=== PATIENT | female | born 2000 | race Two or more races ===

== ENCOUNTER 2024-08-29 20:58 | Emergency (ER) | payer BC, SELFPAY ==
[2024-08-29 21:33] VITALS: BP 130/80; PULSE 85; RESP 18; TEMP 36.9; O2SAT 100
[2024-08-29] MEDS: AMOXICILLIN/POT CLAV 875 TABLET 1 TAB PO (21:50)
[2024-08-29] MEDS: ACETAMINOPHEN 500 MG TABLET 1000 MG PO (21:50)
--- NOTE | 2024-08-30 02:04 | PD.EDDENTL ---
ED Dental RME/HPI General Chief complaint: Dental/Oral/Throat Stated complaint: Toothache-feels its cracked-27wks PG Time Seen by Provider: 08/29/24 21:45 Arrival date/time: 08/29/24 20:58 24F with no significant PMH presents to ED with dental pain for a few days. Patient is also . Limitations: no limitations Related Data Home Medications ?Medication ?Instructions ?Recorded ?Confirmed ampicillin 500 mg capsule 500 mg PO BID 09/04/22 09/04/22 prenat.vits,elfego,ohj-aeir-lnexk 1 tab PO QDAY 09/04/22 09/04/22 Previous Rx's ?Medication ?Instructions ?Recorded amoxicillin 875 mg-potassium 1 tab PO BID 7 days #14 tabs 08/29/24 clavulanate 125 mg tablet Allergies Allergy/AdvReac Type Severity Reaction Status Date / Time No Known Allergies Allergy Verified 09/04/22 22:16 Review of Systems Review of Systems Systems Reviewed: All systems reviewed, normal except as documented Constitutional Constitutional: Reports system reviewed and no additional complaints, except as documented, Denies fever(s) and Denies headache(s) ENT Ears, Nose, Mouth, and Throat: Reports as per HPI, Reports dental pain, Denies disequilibrium and Denies headache(s) Cardiovascular Cardiovascular: Reports system reviewed and no additional complaints, except as documented, Denies chest pain and Denies dyspnea Respiratory Respiratory: Reports system reviewed and no additional complaints, except as documented, Denies cough and Denies dyspnea Gastrointestinal Gastrointestinal: Reports system reviewed and no additional complaints, except as documented, Denies abdominal pain, Denies nausea and Denies vomiting Neurologic Neurologic: Reports system reviewed and no additional complaints, except as documented, Denies confusion, Denies disequilibrium and Denies headache(s) Psychiatric Psychiatric: Denies confusion Past Medical History Past Medical History NEUROLOGIC: Negative Neurological Disorders CARDIAC: Negative Cardiac Disorders or Congestive Heart Failure RESPIRATORY: Negative Chronic Obstructive Pulmonary Disease (COPD) or Asthma GASTROINTESTINAL: Negative Gastrointestinal Disorders or Hepatitis GENITOURINARY: Negative Genitourinary Disorders or Renal Disease REPRODUCTIVE: Negative Endometriosis, Genital Herpes, Gonorrhea, Pelvic Inflammatory Disease, Previous Pregnancies, Syphilis or Uterine Prolapse MUSCULOSKELETAL: Negative Musculoskeletal Disorders ENDOCRINE: Negative Endocrine Disorders, Diabetes Mellitus Type 1 or Diabetes Mellitus Type 2 HEMATOLOGIC: Negative Blood Disorders or Sickle Cell Disease OTHER HISTORY: Negative Hospitalization, Autoimmune Disease, Down Syndrome, Developmental Delay, Shingles, Falls, Blood Transfusions, Blood Transfusion Reaction, Anesthesia Reactions, Organ Transplant, Chemotherapy, Radiation Therapy, Hyperbaric Therapy, MRSA, VRSA, Vancomycin-Resistant Enterococci, Human Immunodeficiency Virus (HIV), Chicken Pox, Measles, Mumps, Rubella (Chinese Measles), Pertussis, Clostridium Difficile or Cancer Family History FAMILY HISTORY: Positive Family Cardiac Disorders (FATHER, HTN); Negative Family Psychiatric Problems, Family Respiratory Disorders, Family Gastrointestinal Problems, Family Cancer, Family Surgery or Family Anesthesia Reaction Surgical History SURGICAL: Negative Section or Organ Transplant Social History SMOKING STATUS: Never smoker ED Exam General Limitations: Present no limitations General appearance: Present alert and in no apparent distress Head Head exam: Present atraumatic Eye Eye exam: Present normal appearance, PERRL and EOMI ENT ENT exam: Present mucous membranes moist Expanded ENT Exam Teeth exam: Present gingival swelling Neck Neck exam: Present normal inspection, full ROM and trachea midline Chest Chest inspection: Present normal inspection and symmetric chest wall rise Respiratory Respiratory exam: Present normal lung sounds bilaterally Cardiovascular Cardiovascular exam: Present regular rate, normal rhythm and normal heart sounds Abdominal Exam Abdominal exam: Present soft and normal bowel sounds Extremities Exam Extremities exam: Present normal inspection and full ROM Back Exam Back exam: Present normal inspection and full ROM Neurological Exam Neurological exam: Present alert, oriented X3 and CN II-XII intact Psychiatric Psychiatric exam: Present normal affect and normal mood Skin Skin exam: Present warm, dry, intact and normal color Course Quality Measures none Orders Category Date Time Status Acetaminophen Tab [Tylenol ES Tab] Med 08/29/24 21:46 Discontinued 1,000 mg PO X1 ONE Amoxicillin/Pot Clav 875 [Augmentin 875] Med 08/29/24 21:46 Discontinued 1 tab PO X1 ONE Vital Signs Vital signs: Vital Signs Temperature 98.4 F 08/29/24 21:33 Pulse Rate 85 08/29/24 21:33 Respiratory Rate 18 08/29/24 21:33 Blood Pressure 130/80 08/29/24 21:33 Pulse Oximetry (%) 100 08/29/24 21:33 Oxygen Delivery Method Room Air 08/29/24 21:33 O2 at 100% on RA and WNLs Dental / Oral MDM Narrative MDM Narrative:: 24F with no significant PMH presents to ED with dental pain for a few days. Patient is also . Physical exam reveals gingival swelling around L upper tooth with filling in it. Patient is afebrile, calm, and alert. Meds and mitochondrial disorders counselor given. Patient data External records reviewed:: [facility] previous records Clinical information provided by:: patient Social determinants that could affect healthcare access:: none Patient has the following chronic illnesses:: none How is presenting disease/condition affected by chronic disease/condition?: no chronic disease Evaluation data The following diagnostics were reviewed and interpreted by me:: other (specify) (none) Lab and/or radiology exams considered but not ordered:: not ordered Interpretation Summary: n/a Medications / Prescriptions Medications or Prescriptions considered but not ordered:: ordered Medication administrations:: Medication Administration History Discontinued Medications Acetaminophen (Acetaminophen 500 Mg Tablet) 1,000 mg PO X1 ONE Stop: 08/29/24 21:47 Last Admin: 08/29/24 21:50 Dose: 1,000 mg Documented By: ALYSON Amoxicillin/Clavulanate Potassium (Amoxicillin/Pot Clav 875 Tablet) 1 tab PO X1 ONE Stop: 08/29/24 21:47 Last Admin: 08/29/24 21:50 Dose: 1 tab Documented By: ALYSON above Consultations Consultation(s) initiated? (list below): No Diagnosis Dental Differential Diagnosis: gingival abscess, dental caries, toothache, dental abscess, fracture of tooth, aphthous ulcer and other (dental infection) Most likely diagnosis given after review of the tests above:: dental infection Admission Indicated Admission indicated?: not indicated Admission Request Was there a request for admission?: No Disposition Plan Disposition Plan: Discharge Discharge Attestation Discharge Attestation: The patient and all family members were given an opportunity to ask questions and understood the discharge instructions. Discharge instructions specifically effects, indications for sooner follow up or return to the emergency department, and the expected course of current diagnosis. Patient condition: Stable Discharge Plan Plan Patient Disposition: HOME (Self Care) Disposition Comment: Stable Prescriptions/Referrals Prescriptions/Med Rec: New amoxicillin-pot clavulanate 875-125 mg tablet 1 tab PO BID 7 Days Qty: 14 0RF No Action ampicillin 500 mg capsule 500 mg PO BID Patient Comments: TAKE 1 CAPSULE BY MOUTH TWICE DAILY FOR 7 DAYS Vitamin Tablet 1 tab PO QDAY Problem List Clinical Impression: Dental infection Patient/Caregiver Discharge Instructions Additional Instructions: Please follow-up with PCP within 24-48 hours and return immediately if symptoms worsen. See dentist soon. Print Language: Singaporean Stand Alone Forms: Patient Portal Info Letter PA/SUPERVISOR SHIPFITTER[employer] Supervising Physician PA/SUPERVISOR SHIPFITTER[employer] Supervising Physician: Dr. Lay
== END 2024-08-30 02:10 | disposition home or self-care (01) ==
LOC: SERX 21:57
PROVIDERS: Emergency Provider Emergency Medicine
DX: O99.612 Diseases of the digestive system complicating pregnancy, second trimester (principal); K04.7 Periapical abscess without sinus; Z3A.27 27 weeks gestation of pregnancy
CPT/HCPCS: 99282; A9270

== ENCOUNTER 2024-11-15 15:17 | Observation (INO) | payer BC, SELFPAY ==
[2024-11-15 15:26] VITALS: BP 120/65; PULSE 88
[2024-11-15 15:46] VITALS: BMI 36.0
[2024-11-15 16:11] VITALS: BP 120/65; PULSE 88; RESP 20; RESP 97; TEMP 36.7
== END 2024-11-15 16:30 | disposition home or self-care (01) ==
PROVIDERS: Admitting Provider Advanced Practice Midwife; Visit Provider Advanced Practice Midwife
DX: O46.93 Antepartum hemorrhage, unspecified, third trimester (principal); Z3A.38 38 weeks gestation of pregnancy
CPT/HCPCS: 59025; 59899

== ENCOUNTER 2024-11-19 02:12 | Inpatient (IN) | payer BC, SELFPAY ==
[2024-11-19] VITALS (59 sets, daily range): BP systolic 0–166; BP diastolic 0–100; PULSE 75–126; RESP 17–98; TEMP 36.8–37; O2SAT 93–100; BMI 36.3
[2024-11-19] MEDS: RINGERS LACTATED 1000 ML 1,000 ML 125 ML IV (03:04)
[2024-11-19] MEDS: Ampicillin Inj 2,000 MG in SODIUM CHLORIDE 0.9% (P) 100 ML 200 MG IV (03:31)
--- NOTE | 2024-11-19 03:35 | PD.LDHP ---
Documentation for date of: 11/19/24 OB Labor/Induct. HPI History of Present Illness Chief complaint: contractions, lost mucous plug : 2 Para: 1 Term pregnancies: 1 pregnancies: 0 Living children: 1 History of Abortions: Spontaneous and Elective: 0 History of Vaginal deliveries: 1 History of sections: No History of : No LEROY: 11/24/24 Gestational Age (weeks): 39 Gestational Age (days): 2 History of present illness: Patient presents with regular/painful ctx that started around midnight and loss of mucous plug. No LOF, no vaginal bleeding. Feels normal movement. History of Present Dating criteria: based on 1st trimester US only Adequate Care: Yes Narrative: -Obesity in , starting BMI 32. HgbA1c 5.2. -THC use in early with UDS positive for cannabinoids -Rubella non-immune -UTI treated in early Labs Labs: Positive: Group Beta Strep (per patient) and Negative: RPR, Hepatitis B, Rubella Titre, HIV, Chlamydia and Gonorrhea Review of Systems Review of Systems Narrative Review of Systems: Review of Systems Systems Reviewed: All systems reviewed, normal except as documented Constitutional Constitutional: Denies body ache(s), Denies chills, Denies fever(s) and Denies headache(s) ENT Ears, Nose, Mouth, and Throat: Denies headache(s) and Denies vertigo Cardiovascular Cardiovascular: Denies chest pain, Denies palpitations, Denies dyspnea and Denies syncope Respiratory Respiratory: Denies cough, Denies dyspnea Gastrointestinal Gastrointestinal: Denies nausea and Denies vomiting Neurologic Neurologic: Denies convulsions, Denies headache(s), Denies other visual disturbances, Denies syncope and Denies vertigo Past Medical History Family History OTHER FAMILY HX: father: T2DM Surgical History SURGICAL: Negative Section OTHER SURGICAL HX: denies Social History SOCIAL: +THC use. No ETOH or tobacco. Past Medical History Comments PMH COMMENT: Obesity, starting BMI 32 Seasonal allergies GERD dyspareunia irregular menses Meds Home Medications and Allergies Home Medications ?Medication ?Instructions ?Recorded ?Confirmed ?Type ampicillin 500 mg capsule 500 mg PO BID 09/04/22 09/04/22 History prenat.vits,elfego,ckw-ljnt-rcopf 1 tab PO QDAY 09/04/22 09/04/22 History Allergies Allergy/AdvReac Type Severity Reaction Status Date / Time No Known Allergies Allergy Verified 11/19/24 04:15 OB Exam Physical Exam Vital signs: Pulse BP Pulse Ox 80 0/0 L 100 11/19/24 03:01 11/19/24 03:30 11/19/24 03:34 Narrative: General: well developed, well nourished, no acute distress, conversant Cardiac: normal heart rate Lungs: breathing without distress Abdomen: soft, gravid, non-tender, no rebound or guarding Extremities: no pain with palpation of calves Detailed Labor and Delivery Exam Dilation (cm): 3-4 Effacement (%): 80 Cervix position: posterior station: -2 Consistency: soft Presentation: Vertex Membranes: intact monitor accelerations: 15x15 monitor decelerations: Variable (2 audible decels right after presentation to triage) retirement variability: Moderate (11-25) Contraction frequency (min): q3-5min OB Results Labs 11/19/24 03:15 OB Assessment & Plan Assessment and Plan (1) Active labor at term: Status: Acute Assessment and plan: Patient is a 24yo with SIUP at 39&2wk presenting in early labor with 2 audible variable decels noted right after presentation. Regular/painful contractions, SCE:3-4/80/-2, intact, cephalic. Vitals wnl, benign exam. Reassuring assessment. EFW by Pranay'shay: 6lb. She has had good [facility] with [facility]. Records available at time of admission were reviewed. Normal NIPT. PMhx/ complicated by: -Obesity, starting BMI 32. HgbA1c 5.2. No glucola noted in records but patient states it was done and normal. -THC use in early with UDS positive for cannabinoids -Rubella non-immune -UTI treated in early -GBS positive (per patient, confirmation with lab report pending) Plan: -Admit to L&D -Establish IV, routine labs -CEFM -Clear liquid diet -Machinist Set Up/consent re: -Ampicillin per protocol for presumed GBS positive status -Anticipate -Safe to proceed (2) Obesity affecting in third trimester: Status: Acute (3) Rubella non-immune status, antepartum: Status: Acute (4) Marijuana use during : Status: Acute (2) Obesity affecting in third trimester Qualifiers: Obesity type affecting : unspecified obesity Qualified Code(s): O99.213 - Obesity complicating , third trimester
[2024-11-19 03:36] LABS: Basophils % (Auto) 0 % (0-2.5); Eosinophils # (Auto) 0.2 Thou/mm3 (0.0-0.5); Eosinophils % (Auto) 2 % (0-10); Hematocrit 37.9 % (36.0-46.0); Immature Granulocytes % (Auto) 1 % (0-0); Immature Granulocytes Auto 0.07 Thou/mm3 (0.00-0.00); Lymphocytes % (Auto) 16 % (10-50); Mean Corpuscular HGB Conc 34.3 g/dl (31.0-37.0); Mean Corpuscular Hemoglobin 29.5 pg (25.0-35.0); Mean Corpuscular Volume 86 fL (80-100); Monocytes # (Auto) 0.9 Thou/mm3 (0.0-0.8); Monocytes % (Auto) 7 % (0-12); Neutrophils # (Auto) 9.8 Thou/mm3 (1.8-7.7); Neutrophils % (Auto) 75 % (37-80); Nucleated Red Blood Cell % 0 /100 WBC (0); Platelet Count 282 Thou/mm3 (140-440); RDW Standard Deviation 41.8 fL (36.4-46.3); White Blood Count 13.1 Thou/mm3 (3.6-11.0)
[2024-11-19 03:39] LABS: Amphetamine/Metham Scrn,Ur OB Negative (Negative); Benzoylecgonine Screen, Ur OB Negative (Negative); Opiate Screen,Urine OB Negative (Negative); THC Screen,Urine OB Negative (Negative)
[2024-11-19 04:36] LABS: Syphilis Nonreactive (Nonreactive)
[2024-11-19] MEDS: OXYTOCIN in NS 20 units 20 UNIT/1,000 ML BAG 125 UNIT IV (05:54)
[2024-11-19] MEDS: MISOPROSTOL 200 mCg TABLET 800 MCG PR (05:54)
[2024-11-19] MEDS: LIDOCAINE HCL 1% 20 ML VIAL INFL (05:55)
--- NOTE | 2024-11-19 06:04 | PD.LDDELS ---
Data (Magaña) Data Hx Section: No : 2 Para: 1 Term: 1 : 0 Livin : 0 Delivery Data (Magaña) Labor Data ROM Date: 11/19/24 ROM Time: 05:05 Rupture Type: SROM Amniotic Fluid: Clear Delivery Data Labor Onset Stage 1 Date: 11/19/24 Labor Onset Stage 1 Time: 00:00 Labor Onset Stage 2 Date: 11/19/24 Labor Onset Stage 2 Time: 05:00 Delivery Date: 11/19/24 Delivery Time: 05:10 Placenta Delivery Date: 11/19/24 Placenta Delivery Time: 05:15 Delivered by: Kelly Taylor Delivery nurse: Olivia Cook Other staff at delivery: Nursery Nurse Other staff at delivery: Nurse Other staff at delivery: Lissette Hoang Other staff at delivery: Madison Calvo Delivery Method Delivery: Vaginal Delivery Type: Spontaneous Presentation: Vertex Anesthesia Type Primary Anesthesia: Epidural Placenta Placenta Delivery: Spontaneous Cord Sample: Cord Blood Obtained EBL Estimated blood loss (ml): 300 Umbilical Cord Umbilical Vessels: 3 Nuchal Cord: x1 Additional Procedures Patient is a 24yo s/p uncomplicated at 39&2wk after presenting in active labor, delivering at 0510 on 11/19/2024. On presentation, SCE was 3-4/80/-2. She progressed without pitocin augmentation to C/C/0 at which point she began pushing. She received an epidural. With good maternal pushing efforts, infant's head delivered OA and restituted ACE. One loose nuchal cord reduced. Left anterior shoulder delivered easily followed by posterior shoulder and corpus. Infant had spontaneous cry and was vigorous. Apgars 9/9. Infant placed on maternal abdomen where nose/mouth were suctioned and dried/stimulated. After approximately 1 minute, cord was clamped x2 and cut by FOB. Cord blood collected for typing. With fundal massage and cord traction, placenta delivered spontaneously and intact with 3 vessel centrally inserted cord. There were trailing membranes that I teased out, but broke off. I performed a sweep of the uterus x3 to remove all of the remaining pieces of membranes. Bimanual massage performed and IV pitocin given per protocol with fundus then firm at u-2cm and hemostasis noted. Inspection of perineum and vagina revealed bilateral labial lacerations and a 2nd degree midline perineal laceration which were repaired in routine fashion with 4-0 vicryl after anesthetizing with 1% lidocaine- total reapproximation and hemostasis achieved. 800mcg cytotec placed MN for prophylaxis against future bleeding. All counts correct x2. Mom and were doing well when I left the room. Kelly Taylor MD Data (Magaña) Data Gender: Female Infant Weight Grams: 2765 1 Minute Total: 9 5 Minute Total: 9
[2024-11-19] MEDS: BENZOCAINE/BENZETHON (Dermoplast First Aid Spray) 78 GM CAN 1 SPRAY TOP (08:11)
[2024-11-19] MEDS: DOCUSATE SOD 100 MG CAPSULE PO ×2 (08:12→21:02)
[2024-11-19] MEDS: ACETAMINOPHEN 325 MG TABLET 650 MG PO ×2 (11:59→19:28)
[2024-11-19 12:06] LABS: Basophils % (Auto) 0 % (0-2.5); Eosinophils % (Auto) 0 % (0-10); Hematocrit 33.2 % (36.0-46.0); Hemoglobin 11.5 g/dL (12.0-16.0); Immature Granulocytes % (Auto) 1 % (0-0); Immature Granulocytes Auto 0.09 Thou/mm3 (0.00-0.00); Lymphocytes # (Auto) 1.3 Thou/mm3 (1.0-4.8); Lymphocytes % (Auto) 9 % (10-50); Mean Corpuscular HGB Conc 34.6 g/dl (31.0-37.0); Mean Corpuscular Hemoglobin 29.4 pg (25.0-35.0); Mean Corpuscular Volume 85 fL (80-100); Monocytes # (Auto) 0.7 Thou/mm3 (0.0-0.8); Monocytes % (Auto) 5 % (0-12); Neutrophils # (Auto) 12.5 Thou/mm3 (1.8-7.7); Neutrophils % (Auto) 86 % (37-80); Nucleated Red Blood Cell % 0 /100 WBC (0); Platelet Count 269 Thou/mm3 (140-440); RDW Standard Deviation 41.5 fL (36.4-46.3); Red Blood Count 3.91 Miln/mm3 (4.00-5.20); White Blood Count 14.6 Thou/mm3 (3.6-11.0)
[2024-11-20 00:05] VITALS: BP 112/70; PULSE 84; RESP 17; TEMP 36.7; O2SAT 96
[2024-11-20 04:30] VITALS: BP 102/62; PULSE 86; RESP 18; TEMP 36.7; O2SAT 96
[2024-11-20 07:50] VITALS: BP 108/69; PULSE 73; RESP 20; TEMP 36.7; O2SAT 98
[2024-11-20] MEDS: DOCUSATE SOD 100 MG CAPSULE PO (08:16)
--- NOTE | 2024-11-20 08:58 | ESPR_ITS ---
Subjective Subjective Interval history: Patient doing well overall. Minimal discomfort. She is ambulating no lightheadedness/dizziness. Voiding spontaneously, no issues. Tolerating regular diet without nausea/vomiting. Had a BM. No fevers/chills, no CP/SOB. Baby needs to stay 24hr more for bili light. Exam Vital Signs Temp Pulse Resp BP Pulse Ox O2 Del Method 98.1 F 86 18 102/62 96 Room Air 11/20/24 04:30 11/20/24 04:30 11/20/24 04:30 11/20/24 04:30 11/20/24 04:30 11/20/24 04:30 Narrative Exam General: well developed, well nourished, no acute distress, conversant Cardiac: normal heart rate Lungs: breathing without distress Abdomen: soft, post-gravid, non-tender, no rebound or guarding, Fundus firm at u-3cm. Extremities: no pain with palpation of calves, trace edema of BLE Objective Labs 11/19/24 11:10 Labs: Laboratory Results - last 24 hr 11/19/24 11/19/24 03:15 11:10 WBC 14.6 H RBC 3.91 L Hgb 11.5 L Hct 33.2 L MCV 85 MCH 29.4 MCHC 34.6 RDW Std Deviation 41.5 Plt Count 269 Neut % (Auto) 86 H Lymph % (Auto) 9 L [place] % (Auto) 5 Eos % (Auto) 0 Baso % (Auto) 0 Neut # (Auto) 12.5 H Lymph # (Auto) 1.3 [place] # (Auto) 0.7 Eos # (Auto) 0.0 Baso # (Auto) 0.0 Immature Gran # (Auto) 0.09 H Absolute Nucleated RBC 0.00 Immature Gran % 1 H Nucleated RBC % 0 Blood Type O Positive Antibody Screen NEGATIVE Assessment & Plan Problem List (1) Active labor at term: Status: Acute Assessment and plan: Janene is a 24yo [id number] s/p uncomplicated after presenting in labor, doing well on PPD 1. Vitals wnl, benign exam. Hemodynamically stable with no evidence of infection. Appropriate change in H/H. Baby needs to stay for bili light. Plan: -Continue routine care -Regular diet -Encourage ambulation -Anticipate discharge home tomorrow (2) Obesity affecting in third trimester: Status: Acute (3) Rubella non-immune status, antepartum: Status: Acute (4) Marijuana use during : Status: Acute Time Spent With Patient Time: Total time spent is greater than 50% in coordination of care (as documented) at patient's floor/unit and/or counseling patient:
--- NOTE | 2024-11-20 09:24 | PC.NURSE ---
PT seen by Alex smyth this morning and cleared for dc.
[2024-11-20 11:35] VITALS: BP 116/71; PULSE 80; RESP 18; TEMP 36.8; O2SAT 98
--- NOTE | 2024-11-20 11:47 | PC.SS ---
SS conducted bedside contact with the patient to address nursing referral indicating patient possessed drug history showing THC positive tox on a previous admission. SS introduced self and role.? SS asked for permission to discuss referral in the presence of FOB. Patient agreed.? SS discussed with patient basis of referral. Patient current tox report was negative for both patient and NB. Patient states she does not plan on continuing THC. She had previously used for recreational purposes and was unaware she was at the time. Aluminum Hydroxide Process Operator, Vivi Hodgson provided OB services.? NB?s financial planning advisor is with Dr. Morin. Patient resides with spouse/FOB, Gillian Flores, and their two year old daughter. , January Yancey, delivered natural. Patient states consistency with OB appointments. Patient plans on combo feeding.? Patient is not aligned with WIC, SNAP or TANF.? Patient denies history of drug/alcohol use. Patient denies mental health history. Patient denies any episodes of DV. Patient has access to appropriate supplies and equipment.? Patient has access to a car seat.? FOB will provide transportation upon discharge.? Patient describes possessing support system consisting of spouse and extended family.? financial services counselor provided resources to include:? Parenting network, warm line and community numbers.? No further intervention required at this time, social organization professor will be available to address any further concerns.? SS updated bedside nurse.
[2024-11-20 16:00] VITALS: BP 114/71; PULSE 94; RESP 16; TEMP 36.3; O2SAT 98
[2024-11-20] MEDS: MEASLES, MUMPS & RUBELLA VACC 0.5 ML VIAL SCi (19:27)
[2024-11-20 20:41] VITALS: BP 112/71; PULSE 83; RESP 16; TEMP 36.9; O2SAT 97
[2024-11-21 03:28] VITALS: BP 106/69; PULSE 86; RESP 19; TEMP 36.6; O2SAT 97
[2024-11-21] MEDS: ACETAMINOPHEN 325 MG TABLET 650 MG PO (07:56)
[2024-11-21 08:00] VITALS: BP 113/73; PULSE 79; RESP 18; TEMP 36.4; O2SAT 98
[2024-11-21] MEDS: DOCUSATE SOD 100 MG CAPSULE PO (08:00)
--- NOTE | 2024-11-21 10:29 | PD.LDDS ---
DS: Providers Provider Date of admission: 11/19/24 02:58 Primary care physician: Physician No Primary/Family Admitting Provider: Kelly Taylor MD Attending Provider on Admission: Anup Hoover MD Consults: 11/19/24 05:43 Referral Routine Comment: Attending Provider on DC: Kelly Taylor MD Discharging Provider: Kelly Taylor MD DS: Diagnosis Discharge Diagnosis (1) Normal labor and delivery: Status: Acute (2) Obesity affecting in third trimester: Status: Acute (3) Rubella non-immune status, antepartum: Status: Acute (4) Marijuana use during : Status: Acute Problem List Completed Was Problem List Reviewed/Reconciled?: Yes Summary/Hosp Course Brief History: Janene is a 24yo [id number] s/p uncomplicated after presenting in labor, doing well on PPD 2. She has had an uncomplicated course, meeting all milestones and feels ready for discharge home. She is ambulating without lightheadedness, tolerating regular diet no n/v, spontaneously voiding without issue. She has no chest pain or shortness of breath. No fevers or chills. Minimal, appropriate discomfort. Vitals normal, benign exam. Hemodynamically stable with no evidence of infection. PP Hgb 11.5. Status at Discharge Functional status at discharge: independent ambulation Overall status at discharge: patient is back to baseline Time Spent with Patient Time attestation: Total time spent providing and/or coordinating discharge services: Exam Vital Signs Temp Pulse Resp BP Pulse Ox O2 Del Method 97.9 F 86 19 106/69 97 Room Air 11/21/24 03:28 11/21/24 03:28 11/21/24 03:28 11/21/24 03:28 11/21/24 03:28 11/21/24 03:28 Narrative Exam General: well developed, well nourished, no acute distress, conversant Cardiac: normal heart rate Lungs: breathing without distress Abdomen: soft, post-gravid, non-tender, no rebound or guarding, Fundus firm at u-3cm. Extremities: no pain with palpation of calves, trace edema of BLE Discharge Plan Plan Patient Disposition: HOME (Self Care) Prescriptions/Referrals Prescriptions/Med Rec: New docusate sodium 100 mg Capsule 100 mg PO BID 10 Days Qty: 20 0RF ibuprofen 800 mg tablet 800 mg PO Q8H PRN (Reason: See Comments) 10 Days Qty: 30 0RF Continued prenat.vits,elfego,prm-rzhb-oexxu Tablet 1 tab PO QDAY Discontinued ampicillin 500 mg capsule 500 mg PO BID Patient Comments: TAKE 1 CAPSULE BY MOUTH TWICE DAILY FOR 7 DAYS Referrals: No Primary/Family,Physician [Primary Care Provider] - Patient/Caregiver Discharge Instructions Discharge Activity: activity as tolerated and other Other Discharge Activity Instructions:: vaginal rest and no heavy lifting greater than 10 pounds for 6 weeks Other Discharge Diet Instructions: regular Education Materials: After a Vaginal , Nutrition While , Understanding Depression, , : Caring for Yourself Print Language: Indonesian Activity Restrictions/Additional Instructions: follow up in clinic in 4 weeks, call for appointment Stand Alone Forms: Becky Award Info., Patient Portal Info Letter Discharge Order Discharge Orders: Discharge (Routine); Ordered 11/21/24 Ordered By: Kelly Taylor Planned Discharge Date 11/21/24 (2) Obesity affecting in third trimester Qualifiers: Obesity type affecting : unspecified obesity Qualified Code(s): O99.213 - Obesity complicating , third trimester
== END 2024-11-21 14:10 | disposition home or self-care (01) | DRG 807 ==
LOC: S4SX 04:35 → S4NX 07:50
PROVIDERS: Admitting Provider Obstetrics & Gynecology; Visit Provider Student in an Organized Health Care Education/Training Program
DX: O99.214 Obesity complicating childbirth (principal); Z37.0 Single live birth; O76 Abnormality in fetal heart rate and rhythm complicating labor and delivery; Z3A.39 39 weeks gestation of pregnancy; O69.81X0 Labor and delivery complicated by cord around neck, without compression, not applicable or unspecified; O99.324 Drug use complicating childbirth; O70.1 Second degree perineal laceration during delivery; Z79.899 Other long term (current) drug therapy; Z87.440 Personal history of urinary (tract) infections; F12.90 Cannabis use, unspecified, uncomplicated
CPT/HCPCS: 36415; 59409; 80307; 85025; 86780; 86850; 86900; 86901; 90707; 94762; A9270; J0290; J2590; J2795; J3010; J3490; J7120; S0191

== ENCOUNTER 2025-01-07 14:56 | Outpatient (AMB) | payer BC, SELFPAY ==
--- NOTE | 2025-01-07 14:59 | AMB.GYNCLNOT ---
Vital Signs 01/07/25 15:03 Height 1.7 m Height Method Stated Weight 97.976 kg Weight Measurement Method Standing Scale BMI 33.8 BP 117/76 Blood Pressure Source Automatic Cuff Blood Pressure Location Left Upper Arm Position Sitting Respiration 16 Pulse 79 Pulse Source Monitor Temp 98.0 F Temp Source Oral Pulse Oximetry (%) 97 Oxygen Delivery Method Room Air Allergies/Home Meds Allergies & Medications Allergies No Known Allergies Allergy (Verified 01/07/25 15:04) Medication Reconciliation prenat.vits,elfego,lry-qduc-orena 1 tab PO QDAY 09/04/22 [History Confirmed 01/07/25] Intake Visit Data Collection New Patient or Established: Established Patient (seen at [facility] within 3 years) Reason for Visit:: FOLLOW UP Seen by Clinical Staff ONLY (RN/MA): No Fuel Cell Builder Required: No Do You Feel Safe at Home: Yes Authorities Contacted: N/A PCP or OBGYN visit in last 3 months: Yes Hx Now: No Are you currently on any form of Control: No Last menstrual period: 01/04/25 Pain Present Currently: No Pain Scale Used: Chadwick-Bae/Numerical Pain scale:: 0 Smoking Status Smoking Status: Never smoker 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 1. Little interest or pleasure in doing things: not at all 2. Feeling down, depressed, or hopeless: not at all Total score: 0 PHQ-9 3. Trouble falling or staying asleep, or sleeping too much: Not at all 4. Feeling tired or having little energy: Not at all 5. Poor appetite or overeating: Not at all 6. Feeling bad about yourself - or that you are a failure or have let yourself or your family down: Not at all 7. Trouble concentrating on things, such as reading the newspaper or watching television: Not at all 8. Moving or speaking so slowly that other people could have noticed? - Or the opposite - being so fidgety or restless that you have been moving around a lot more than usual: not at all 9. Thoughts that you would be better off or of hurting yourself in some way: Not at all Total score: 0 Source: Developed by Drs. Dorian Hernandez, Brooklyn Colby, Hans Larkin and colleagues, with an educational migue from [employer]. Depression screen completed yes Social History Living Situation History Lives With: Family Housing: House Tobacco History Smoking Status: Never smoker Second Hand Smoke Exposure: No Alcohol History Alcohol Intake: Never Domestic Abuse History Do You Feel Safe at Home: Yes Past Medical History Past Medical History Have you ever been diagnosed with any of the following: Neurological Problems Cerebrovascular Accident (CVA): No Transient Ischemic Attacks (TIA): No Dementia: No Alzheimer's Disease: No Parkinson's Disease: No Brain Tumor: No Meningitis: No Seizures: No Cardiology Problems Myocardial Infarction: No Cardiac Arrhythmia: No Atrial Fibrillation: No Angina: No Heart Murmur: No Coronary Artery Disease: No Congestive Heart Failure: No Respiratory Problems Chronic Obstructive Pulmonary Disease (COPD): No Asthma: No Hx Cough: No Cough: No Wheezing: No Chest Deformities: No Smoking: No Smoking Cessation Counseling: No Smoking Exposure: No Tobacco Use: No Stomache/Intestinal Problems Liver Cancer: No Hepatitis: No Pancreatic Cancer: No Pancreatitis: No Celiac Disease: No Gall Bladder Disease: No Gastrointestinal Bleed: No Diverticulitis: No Crohn's Disease: No Obstructive Bowel: No Genital/Urinary Problems Chronic Kidney Disease: No Renal Disease: No Reproductive Problems Endometriosis: No Genital Herpes: No Gonorrhea: No Pelvic Inflammatory Disease: No Previous Pregnancies: Yes Syphilis: No Uterine Prolapse: No Musculoskeletal Problems Muscular Dystrophy: No Myasthenia Gravis: No Marfan's Syndrome: No Bone Cancer: No Arthritis: No Head,Eye,Nose,Throat Problems Cataracts: No Glaucoma: No Blind: No Retinal Detachment: No Macular Degeneration: No Chronic Ear Infections: No Deafness: No Eye Prosthesis: No Endocrine Problems Diabetes Mellitus Type 1: No Diabetes Mellitus Type 2: No Blood Problems Anemia: No Sickle Cell Disease: No Other Problems Hospitalization: No Down Syndrome: No Developmental Delay: No Shingles: No Falls: No Blood Transfusions: No Blood Transfusion Reaction: No Anesthesia Reactions: No Organ Transplant: No Chemotherapy: No Radiation Therapy: No Hyperbaric Therapy: No MRSA: No VRSA: No Vancomycin-Resistant Enterococci: No Human Immunodeficiency Virus (HIV): No Chicken Pox: No Measles: No Mumps: No Rubella (Y[place]i Measles): No Pertussis: No Clostridium Difficile: No Cancer: No History of Present Illness HPI Narrative This is a 24-year-old 2 para 2 comes to the office today for a 5-week visit and control options. Patient had a vaginal delivery November 19, 2024. A baby girl weighing 6 pounds 1. And patient is bottlefeeding. The sibling is adjusting well. In father the baby is providing support and help to the patient. The patient was seen at her 2-week with a history of symphysis diastasis and was provided with comfort measures and taking ibuprofen to help with pelvic discomfort. Patient reports difficulty with ambulation and moving. Pain with stooping and bending. Pain begins in the both hips bilaterally and then radiates to the front of the symphysis pubis is. Patient has difficulty carrying the baby and lifting weight. Patient resumed sexual intercourse January. Condom was used for contraception. Last. Started January 04, 2025. Patient would like to start the Nexplanon for control. Patient denies social habits and smoking. Patient denies chronic illness and hypertension. Patient denies surgeries. No complaints of depression at this time. Review of Systems Review of Systems Systems Reviewed: All systems reviewed, normal except as documented Exam Narrative Physical exam: Normal heart rate and rhythm. Lungs clear no wheezes. Abdomen is soft nontender. Uterus well involuted. Perineum is intact no lacerations. No swelling. Small lochia. Negative Homans' sign. 2+ DTRs. No edema no swelling. Breasts are soft. ROM of both hips noted on exam. reports discomfort with flexion. symphysis 2cm, soft. tender to palpation Assessment & Plan Diagnosis / Problem List (1) Encounter for routine follow-up: Status: Acute Plan: No sex. Discussed Nexplanon inserted in procedure. I reviewed method with patient. Discussed side effects of Nexplanon with patient. Continue multivitamins. Discussed increased fluids. And okay for exercise. Patient to return January 28 for Nexplanon insert. (2) Traumatic diastasis of symphysis pubis: Status: Acute Qualifiers: Encounter type: subsequent encounter Qualified Code(s): S33.4XXD - Traumatic rupture of symphysis pubis, subsequent encounter Assessment and Plan: Advised patient to continue ibuprofen 800 mg every 6-8 hours as needed for discomfort. I discussed pelvic exercises with patient. Heat pack to pubic area as needed. And I advised patient to schedule an appointment with chiropractor. I will evaluate patient at next visit on 28 January. I extended disability to January 25. Additional Plan Follow Up: 2 Weeks (rtc for nexplanon insert and eval of symphysis pain) Office Procedures OB Clinic LOC & Office Proc's Nursing/Assessment Patient Status: Established Patient OB Clinic Nursing Assessment: Medication Reconciliation, Update PMH in EMR and Vital Signs OB Clinic Coordination of Care: Complex Care and Chronic Disease 1-5, Consent,records obtained, informed consent, Education Simp Pt/Fam and Staff clarify orders Established Patient Charge Established Patient Point Assignment: 85 Established Patient Point Charge: EP Level 3 (80-115) Post Follow-up Visit Post Follow up Visit: Yes
[2025-01-07 15:03] VITALS: BP 117/76; PULSE 79; RESP 16; TEMP 36.7; O2SAT 97; BMI 33.8
== END 2025-01-07 15:42 | disposition home or self-care (01) ==
LOC: HODSOBC 14:56
PROVIDERS: Supervising Provider Obstetrics & Gynecology; Visit Provider Advanced Practice Midwife
DX: Z39.2 Encounter for routine postpartum follow-up (principal); Z30.017 Encounter for initial prescription of implantable subdermal contraceptive; S33.4XXD Traumatic rupture of symphysis pubis, subsequent encounter; X58.XXXD Exposure to other specified factors, subsequent encounter
CPT/HCPCS: 99213; G0463

== ENCOUNTER 2025-01-28 13:24 | Outpatient (AMB) | payer BC, SELFPAY ==
[2025-01-28 14:12] VITALS: BP 128/75; PULSE 82; RESP 18; TEMP 36.6; O2SAT 98; BMI 34.2
--- NOTE | 2025-01-28 14:12 | GYNCLNT_ITS ---
Vital Signs 01/28/25 14:12 Height 1.7 m Height Method Stated Weight 99.053 kg Weight Measurement Method Standing Scale BMI 34.2 BP 128/75 Blood Pressure Source Automatic Cuff Blood Pressure Location Right Upper Arm Position Sitting Respiration 18 Pulse 82 Pulse Source Monitor Temp 98 F Temp Source Temporal Artery Scan Pulse Oximetry (%) 98 Oxygen Delivery Method Room Air Allergies/Home Meds Allergies & Medications Allergies No Known Allergies Allergy (Verified 01/28/25 14:13) Medication Reconciliation prenat.vits,elfego,dfc-dfps-pxibf 1 tab PO QDAY 09/04/22 [History Confirmed 5] etonogestrel 68 mg subdermal implant (Nexplanon) 1 implant subdermal .once contraception 12 months #1 ea 01/28/25 [Rx] Intake Visit Data Collection New Patient or Established: Established Patient (seen at [facility] within 3 years) Reason for Visit:: nexplanon inscetion Do You Feel Safe at Home: Yes Authorities Contacted: N/A PCP or OBGYN visit in last 3 months: Yes Pain Present Currently: No Smoking Status Smoking Status: Never smoker 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 1. Little interest or pleasure in doing things: not at all 2. Feeling down, depressed, or hopeless: not at all Total score: 0 PHQ-9 8. Moving or speaking so slowly that other people could have noticed? - Or the opposite - being so fidgety or restless that you have been moving around a lot more than usual: not at all Source: Developed by Drs. Dorian Hernandez, Brooklyn Colby, Hans Larkin and colleagues, with an educational migue from [employer]. Depression screen completed yes Social History Living Situation History Lives With: Family Housing: House Tobacco History Smoking Status: Never smoker Second Hand Smoke Exposure: No Alcohol History Alcohol Intake: Never Domestic Abuse History Do You Feel Safe at Home: Yes Past Medical History Past Medical History Have you ever been diagnosed with any of the following: Neurological Problems Cerebrovascular Accident (CVA): No Transient Ischemic Attacks (TIA): No Dementia: No Alzheimer's Disease: No Parkinson's Disease: No Brain Tumor: No Meningitis: No Seizures: No Cardiology Problems Myocardial Infarction: No Cardiac Arrhythmia: No Atrial Fibrillation: No Angina: No Heart Murmur: No Coronary Artery Disease: No Congestive Heart Failure: No Respiratory Problems Chronic Obstructive Pulmonary Disease (COPD): No Asthma: No Hx Cough: No Cough: No Wheezing: No Chest Deformities: No Smoking: No Smoking Cessation Counseling: No Smoking Exposure: No Tobacco Use: No Stomache/Intestinal Problems Liver Cancer: No Hepatitis: No Pancreatic Cancer: No Pancreatitis: No Celiac Disease: No Gall Bladder Disease: No Gastrointestinal Bleed: No Diverticulitis: No Crohn's Disease: No Obstructive Bowel: No Genital/Urinary Problems Renal Disease: No Reproductive Problems Endometriosis: No Genital Herpes: No Gonorrhea: No Pelvic Inflammatory Disease: No Previous Pregnancies: Yes Syphilis: No Uterine Prolapse: No Musculoskeletal Problems Muscular Dystrophy: No Myasthenia Gravis: No Marfan's Syndrome: No Bone Cancer: No Arthritis: No Head,Eye,Nose,Throat Problems Cataracts: No Glaucoma: No Blind: No Retinal Detachment: No Macular Degeneration: No Chronic Ear Infections: No Deafness: No Eye Prosthesis: No Endocrine Problems Diabetes Mellitus Type 1: No Diabetes Mellitus Type 2: No Blood Problems Anemia: No Sickle Cell Disease: No Other Problems Hospitalization: No Down Syndrome: No Developmental Delay: No Shingles: No Falls: No Blood Transfusions: No Blood Transfusion Reaction: No Anesthesia Reactions: No Organ Transplant: No Chemotherapy: No Radiation Therapy: No Hyperbaric Therapy: No MRSA: No VRSA: No Vancomycin-Resistant Enterococci: No Human Immunodeficiency Virus (HIV): No Chicken Pox: No Measles: No Mumps: No Rubella (Turk[place] Measles): No Pertussis: No Clostridium Difficile: No Cancer: No History of Present Illness HPI Narrative 24-year-old 2 para 2 for Nexplanon insert. Patient is 8 weeks and comes today for contraception. Last period January 04, 2025. The last time patient had sexual intercourse was over 2 weeks ago. Patient is bottlefeeding. Denies social habits. Denies surgery. Denies chronic illness. 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 Reports improved hip pain that was previously noted Review of Systems Review of Systems Systems Reviewed: All systems reviewed, normal except as documented Exam General Limitations: no limitations General Appearance: alert, in no apparent distress, comfortable, cooperative, healthy appearing, well developed and well groomed Head Head exam: atraumatic, normocephalic and normal inspection Chest Chest inspection: Present normal inspection and symmetric chest wall rise Resp Respiratory exam: Present normal lung sounds bilaterally Card Cardiovascular exam: Present regular rate, normal rhythm and normal heart sounds Abdominal Abdominal exam: Present soft and normal bowel sounds Extremities Extremities exam: Present normal inspection and full ROM Psych Psychiatric exam: Present normal affect and normal mood Results Objective Laboratory: test- Assessment & Plan Diagnosis / Problem List (1) Nexplanon insertion: Status: Acute Plan consent for nexplanon insert. review method and side effect such as changes in menses, increased weight gain. reviewed nexplanon procedure with patient. discuss wound care. dry x 3 days. condom x 2 week. rtc if s/s of infection, tylenol as needed for discomfort. discuss safe sex. rtc as needed Additional Plan Follow Up: 4 Weeks Office Procedures OB Clinic LOC & Office Proc's Nursing/Assessment Patient Status: Established Patient OB Clinic Nursing Assessment: Medication Reconciliation, Update PMH in EMR and Vital Signs OB Clinic Coordination of Care: Complex Care and Chronic Disease 1-5, Education Complex Pt/Fam and Staff clarify orders Established Patient Charge Established Patient Point Assignment: 85 Established Patient Point Charge: EP Level 3 (80-115) In Clinic Bedside tests Bedside HCG: Yes In Clinic Procedures Insertion of Control other NOT IUD's: Yes Results HGB HGB Cancelled Last Edit by Eleno Gregg MA on 01/28/25 15:06 HGB previously reported as negative Eleno rGegg 01/28/25 15:06 CANCELLED wrong test Urine HCG Urine HCG Negative Last Edit by Eleno Gregg MA on 01/28/25 15:06 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 consent for nexplanon insert. discuss procedure, side effect of nexplanon and wound care. betadine cleanse of insert area x3. 3 cc lidocaine 1% at nexplanon insert site. nexplanonon insert with applicator. small bleb of blood noted. covered with bandaid, pressure dressing applied
== END 2025-01-28 14:35 | disposition home or self-care (01) ==
LOC: HODSOBC 13:24
PROVIDERS: Supervising Provider Advanced Practice Midwife; Visit Provider Advanced Practice Midwife
DX: Z30.017 Encounter for initial prescription of implantable subdermal contraceptive (principal)
CPT/HCPCS: 81025; 99213; J3490; J7301; G0463